=== PATIENT | female | born 1995 | race Caucasian/White ===

== ENCOUNTER 2017-03-08 02:52 | Inpatient (IN) | payer MEDICAID, OTHER ==
[~2017-03-08] VITALS: Ht 149.9 cm; Wt 50.7 kg
[2017-03-08] VITALS (18 sets, daily range): BP systolic 84–106; BP diastolic 44–70; PULSE 82–114; RESP 10–26; Ht 149.9 cm; Wt 50.7 kg
[2017-03-08] MEDS ORDERED: SOD CHLORIDE 0.9% 1,000 ML IV STA (03:34)
[2017-03-08] MEDS ORDERED: HYDROmorphONE 1 MG/ML SYG IV STA (03:34)
[2017-03-08] MEDS ORDERED: ONDANSETRON 4 MG INJ IV STA (03:34)
[2017-03-08] MEDS ORDERED: PIPER-TAZO 3.375 GM IV (PMX) 100 ML IVPB ONE (04:00)
[2017-03-08 04:18] LABS: BASOPHILS % 0.3 % (0.0-2.0); EOSINOPHILS % 0.2 % (0.0-7.0); HEMATOCRIT 36.6 % (37.0-47.0); HEMOGLOBIN 12.1 g/dl (12.0-16.0); LYMPHOCYTES # 2.2 10^3/ul (0.8-2.9); LYMPHOCYTES % 16.2 % (18.0-55.0); MEAN CORPUSCULAR HEMOGLOBIN 31.8 pg (29.0-33.0); MEAN CORPUSCULAR HGB CONC 33.1 g/dl (32.0-37.0); MEAN CORPUSCULAR VOLUME 96.1 fl (72.0-104.0); MEAN PLATELET VOLUME 9.8 fl (7.4-10.4); MONOCYTE # 0.7 10^3/ul (0.3-0.9); MONOCYTES % 5.2 % (0.0-13.0); NEUTROPHIL # 10.6 10^3/ul (1.6-7.5); NEUTROPHILS % 77.8 % (30.0-74.0); PLATELET COUNT 217 10^3/UL (140-415); RED BLOOD COUNT 3.81 10^6/ul (4.20-5.40); RED CELL DISTRIBUTION WIDTH 12.5 % (11.5-14.5); WHITE BLOOD COUNT 13.6 10^3/ul (4.8-10.8)
[2017-03-08] MEDS ORDERED: ONDANSETRON 4 MG INJ IV PRN ×2 (04:30→15:30)
[2017-03-08] MEDS ORDERED: NACL 0.9% 3 ML SYG IV SCH (04:30)
[2017-03-08] MEDS ORDERED: morphine 2 MG INJ IV PRN (04:30)
[2017-03-08 04:37] LABS: ALBUMIN 4.1 g/dl (3.3-4.9); ALBUMIN/GLOBULIN RATIO 1.46; BILIRUBIN,INDIRECT 1.2 mg/dl (0-1.1); BILIRUBIN,TOTAL 1.2 mg/dl (0.2-1.3); CALCIUM 8.7 mg/dl (8.4-10.2); CREATININE 0.6 mg/dl (0.44-1.00); POTASSIUM 3.8 mmol/L (3.5-5.1); TOTAL PROTEIN 6.9 g/dl (6.1-8.1)
[2017-03-08] MEDS ORDERED: SOD CHLORIDE 0.9% 1,000 ML IV SCH (05:00)
--- NOTE | 2017-03-08 05:03 | ERA ---
ER Documentation Chief Complaint Date/Time DATE: 03/08/17 TIME: 04:59 Chief Complaint RLQ abdominal pain. HPI 21-year-old young woman diagnosed at [facility] with acute retrocecal appendicitis dilated to 9 mm after presenting there with about 7 hours of abdominal pain and nausea. For some reason shortly after admission her and her mother decided to leave AGAINST MEDICAL ADVICE because they did not like that facility. She has continued right lower quadrant abdominal pain with nausea although denies fevers or chills, no vomiting or diarrhea. ROS All systems reviewed and are negative except as per history of present illness. Medications Home Meds No Active Prescriptions or Reported Meds Allergies Allergies: Coded Allergies: No Known Allergy (Unverified , 03/08/17) PMhx/Soc None Medical and Surgical Hx: pt denies Medical Hx, pt denies Surgical Hx Hx Alcohol Use: No Hx Substance Use: No Hx Tobacco Use: No Smoking Status: Never smoker FmHx Family History: No diabetes Physical Exam Vitals Vital Signs Date Time Temp Pulse Resp B/P Pulse Ox O2 Delivery O2 Flow Rate FiO2 03/08/17 02:55 98.4 87 18 109/62 99 Physical Exam GENERAL: Well-developed, afebrile, moderate pain HEENT: Moist mucous membranes, pink conjunctiva, no cervical spine tenderness or step-off deformities, no goiter, no jaundice or icterus, extraocular movements intact without pain. No submandibular induration, and no pharyngeal erythema NEURO: Alert and oriented 3, cranial nerves II through XII intact bilaterally, pupils equal round reactive to light, no focal deficits or facial asymmetry, sensation intact distally Strength 5/5 in upper and lower extremities bilaterally CARDIAC: Regular rate and rhythm, no murmurs rubs or gallops LUNGS: Clear bilaterally no wheezing crackles or stridor ABDOMEN: Positive McBurney's point tenderness with voluntary guarding, no rigidity or rebound. SKIN: Warm and dry to touch, no abrasions, contusions, or hematomas, no lacerations, no ecchymosis, no target lesions, and without ulcers EXTREMITIES: No clubbing cyanosis or edema, calves are bilaterally symmetrical, no Homans sign, no popliteal cord sign. Distal pulses equal and bilateral PSYCH: Normal affect without agitation or irritability Result Diagram: 03/08/17 0340 03/08/17 0340 Results 24 hrs Laboratory Tests Test 03/08/17 03:40 White Blood Count 13.610^3/ul Red Blood Count 3.8110^6/ul Hemoglobin 12.1g/dl Hematocrit 36.6% Mean Corpuscular Volume 96.1fl Mean Corpuscular Hemoglobin 31.8pg Mean Corpuscular Hemoglobin Concent 33.1g/dl Red Cell Distribution Width 12.5% Platelet Count 18522^3/UL Mean Platelet Volume 9.8fl Neutrophils % 77.8% Lymphocytes % 16.2% Monocytes % 5.2% Eosinophils % 0.2% Basophils % 0.3% Nucleated Red Blood Cells % 0.0/100WBC Neutrophils # 10.610^3/ul Lymphocytes # 2.210^3/ul Monocytes # 0.710^3/ul Eosinophils # 0.010^3/ul Basophils # 0.010^3/ul Nucleated Red Blood Cells # 0.010^3/ul Sodium Level 141mmol/L Potassium Level 3.8mmol/L Chloride Level 106mmol/L Carbon Dioxide Level 22mmol/L Anion Gap 17 Blood Urea Nitrogen 9mg/dl Creatinine 0.60mg/dl Glucose Level 84mg/dl Calcium Level 8.7mg/dl Total Bilirubin 1.2mg/dl Direct Bilirubin 0.00mg/dl Indirect Bilirubin 1.2mg/dl Aspartate Amino Transf (AST/SGOT) 24IU/L Alanine Aminotransferase (ALT/SGPT) 32IU/L Alkaline Phosphatase 34IU/L Total Protein 6.9g/dl Albumin 4.1g/dl Globulin 2.80g/dl Albumin/Globulin Ratio 1.46 Lipase 28U/L Current Medications Medications (Trade) Dose Ordered Sig/Romina Route PRN Reason Start Time Stop Time Status Last Admin Dose Admin Sodium Chloride (NS) 1,000 ml @ 1,000 mls/hr Q1H STAT IV 03/08/17 03:34 03/08/17 04:33 DC 03/08/17 03:55 Hydromorphone HCl (Dilaudid) 1 mg ONCE STAT IV 03/08/17 03:34 03/08/17 03:36 DC Ondansetron HCl 4 mg 4 mg ONCE STAT IV 03/08/17 03:34 03/08/17 03:37 DC 03/08/17 03:54 Piperacillin Sod/ Tazobactam Sod (Zosyn 3.375gm/ 100 ml (Pmx)) 100 ml @ 200 mls/hr ONCE ONCE IVPB 03/08/17 04:00 03/08/17 04:29 DC 03/08/17 03:54 Procedures/MDM IV line was established patient was placed on nurse monitoring rhythm strip revealed sinus rhythm at about 80 bpm with upright P and T waves. Patient was afebrile. I administered 1 L normal saline intravenously, hydromorphone 1 mg IV, Zofran 4 mg IV, Zosyn 3.375 g IV. I reviewed the patient's CT scan report which revealed acute appendicitis and will defer further imaging. CBC revealed leukocytosis of 14, electrolytes normal, liver function tests normal, test negative. I spoke to surgeon radio station operator regarding patient's presentation and symptomatology. Patient will be admitted to [facility]. Departure Diagnosis: Primary Impression: Appendicitis Qualified Code: K35.2 - Acute appendicitis with generalized peritonitis Condition: CRYSTAL Haynes MD Mar 08, 2017 05:03
[2017-03-08] MEDS ORDERED: PANTOPRAZOLE 40 MG INJ IV SCH (06:00)
--- NOTE | 2017-03-08 06:40 | HP ---
Date/Time of Note Date/Time of Note DATE: 03/08/17 TIME: 06:28 Assessment/Plan VTE Prophylaxis VTE Prophylaxis Intervention: SCD's Lines/Catheters IV Catheter Type (from [facility]): Peripheral IV Assessment/Plan Chief Complaint/Hosp Course This is a 21-year-old female being admitted to the [facility] floor for: #1 acute appendicitis: We will keep the patient n.p.o., IV fluid hydration with normal saline, Zosyn IV every 6 hours, surgery has been consulted by the ED. Pain medications as indicated, patient currently would like to avoid narcotic medications. #2 tobacco use: Smoking cessation education was given to the patient, greater than 5 minutes was spent on smoking cessation education per #3 DVT and GI prophylaxis: SCDs, Protonix Further treatment strategy will be implemented as per the clinical course. Problems: HPI/ROS Admit Date/Time Admit Date/Time Mar 08, 2017 at 04:17 Hx of Present Illness Chief complaint: Abdominal pain This is a 21-year-old young woman diagnosed at [facility] with acute retrocecal appendicitis dilated to 9 mm after presenting there with about 7 hours of abdominal pain and nausea. For some reason shortly after admission her and her mother decided to leave AGAINST MEDICAL ADVICE because they did not like that facility. She has continued right lower quadrant abdominal pain with nausea although denies fevers or chills, no vomiting or diarrhea. The current time she appears comfortable in bed. She states that Motrin and Tylenol help with her pain and she prefers not to take any narcotic medications that she does feel nauseated after taking them. Allergies: NKDA Medications: None ROS Const: As per HPI Eyes : No pain discharge or redness or change in visual acuity ENT: No pain, sore throat, congestion, congestion, dysphagia or discharge Respiratory: No shortness of breath, cough, sputum, wheezing, or pleuritic pain Cardiovascular: No chest pain, palpitation, PND, or edema GI : As per HPI Genitourinary: No dysuria, hematuria, flank pain , discharge or CVA tenderness Musculoskeletal: No joint pain, back pain, neck pain, restricted range of motion in neck or joints Skin: No rash, bruising or hives Neuro: No headache, dizziness, syncope, seizure, focal weakness Endocrine: No polyuria, polydipsia, temperature intolerance Psych: No hallucination, depression, anxiety or suicidal ideation PMH/Family/Social Past Medical History Medical History: no pertinent history Past Surgical History Past Surgical Hx: no surgical history Family History Significant Family History: no pertinent family hx Social History Smoking Status: Current every day smoker (Half pack per day 10 years) Exam/Review of Systems Vital Signs Vitals Vital Signs Date Time Temp Pulse Resp B/P Pulse Ox O2 Delivery O2 Flow Rate FiO2 03/08/17 05:07 97.7 85 20 101/70 99 Room Air Exam Exam General: Patient is a pleasant 21-year-old female lying in bed in no acute distress HEENT: Atraumatic, normocephalic. The pupils are equal, round and reactive. Extraocular motor are intact Neck: Supple with full range of motion. No rigidity or meningismus Chest: Nontender Lungs: Clear to auscultation bilaterally no crackles rales or wheezing Heart: Normal S1-S2, Regular rhythm and rate. No murmur, S3, or S4 Abdomen: Soft, right lower quadrant tenderness to palpation Extremities: Normal to inspection, no edema no cyanosis Neurologic: Normal mental status, speech normal, cranial nerves II through XII are intact, motor and sensory are intact, no focal weakness Additional Comments Pertinent laboratory findings from [facility]: CBC: White blood cell count 14.3 hemoglobin 13 hematocrit 39 platelets 262, BMP within normal values. CT of the abdomen and pelvis: Retrocecal appendix measuring up to 9 mm diameter with periappendiceal fat stranding and fluid accumulation suggesting acute appendicitis. Please see [facility] documentation for further clinical and laboratory and imaging information for the patient. Labs Result Diagram: 03/08/17 0340 03/08/17 0340 Medications Medications Current Medications Sodium Chloride (NS) 1,000 ml @ 75 mls/hr [id number] IV Last administered on 03/08 05:24; Admin Dose 75 MLS/HR; Start 03/08/17 at 05:00 Ondansetron HCl (Zofran Inj) 4 mg Q6H PRN IV NAUSEA AND/OR VOMITING; Start at 04:30 Morphine Sulfate (morphine) 2 mg Q4H PRN IV SEVERE PAIN LEVEL 7-10; Start 03/08 at 04:30 Pantoprazole 40 mg 40 mg DAILY@06 IV Last administered on 03/08/17 05:23; Admin Dose 40 MG; Start 03/08/17 at 06:00 Piperacillin Sod/ Tazobactam Sod (Zosyn 3.375gm/ 100 ml (Pmx)) 100 ml @ 200 mls /hr Q6 IVPB ; Start 03/08/17 at 08:00 MARIBEL MARK Mar 08, 2017 06:39
[2017-03-08] MEDS ORDERED: DEXAMETHASONE 4 MG/ML 1 ML INJ ONE (07:00)
[2017-03-08] MEDS: PIPER-TAZO 3.375 GM IV (PMX) 100 ML IVPB SCH ×2 (08:12→12:22)
[2017-03-08 10:41] LABS: INR 1.18; PROTIME 15.1 Sec (12.2-14.2); PT RATIO 1.2
[2017-03-08] MEDS ORDERED: KETOROLAC 30 MG INJ IV PRN (11:00)
[2017-03-08] MEDS ORDERED: HYDROCODONE/APAP (5/325) TAB PO PRN ×3 (11:00→15:30)
--- NOTE | 2017-03-08 11:48 | HPN ---
Date/Time of Note Date/Time of Note DATE: 03/08/17 TIME: 11:48 Interval H&P Admission Note Pt. seen H&P reviewed: No system changes Pt. seen H&P reviewed. No system changes (I attest that I have seen and examined the patient and reviewed the operation in detail, as well as its risks , benefits and alternatives of the operation). I attest that I have seen and examined the patient and reviewed in detail the operation, and its associated risks, benefits and alternative. I have answered all the patient's questions to the best of my ability and the patient wishes to proceed. Please refer to rest of electronic medical record for additional updates. LESLEY RUSS M.D. Mar 08, 2017 11:48
--- NOTE | 2017-03-08 12:37 | CONS ---
Date/Time of Note Date/Time of Note DATE: 03/08/17 TIME: 12:37 Assessment/Plan Assessment/Plan Additional Assessment/Plan [facility] INPATIENT CONSULTATION NOTE DATE OF SERVICE: 03/08/2017 PLACE OF SERVICE: [facility], fourth floor ASSESSMENT AND PLAN: A very-pleasant and otherwise healthy 21-year-old young lady presenting with signs and symptoms consistent with acute appendicitis. I recommended laparoscopic, possible open appendectomy and reviewed the operation in detail, including the risks, benefits, and alternatives and answered all of the patient's and family's questions to the best my ability. The patient and family appear to understand and agreed to proceed with surgery. With above assessment, I've recommended the followin. Keep n.p.o. 2. Treat symptoms 3. To the operating room for above Thank you very much for having me involved in the care of this very pleasant patient and wonderful family. If you have any questions, please feel free to contact me at [phone]. Nature of presenting problem: Moderate severity Please note that, given the limited number of diagnoses or management options, the limited amount and/or complexity of data needed to be reviewed, and moderate to high risk of complications and/or morbidity or mortality, this qualifies as low complexity type of decision-making. Disclaimer: Inadvertent spelling and grammatical errors are likely due to EHR/ dictation software use and do not reflect on the quality of delivered patient care. Also, please note that the electronic time recorded on this node does not necessarily reflect the actual time of the visit. Updated clinical summary: A very-pleasant and otherwise healthy 21-year-old young lady presenting with signs and symptoms consistent with acute appendicitis. Comorbidities: 1. Smoking since age of 11 CONSULTATION REQUESTED BY: Kevin Magallon MD HISTORY OF PRESENT ILLNESS: The patient is a very pleasant otherwise healthy 21 -year-old young lady with a long history of smoking as the only comorbidity presenting with 1 day history of right lower quadrant abdominal pain associated with nausea and vomiting which was non-bloody. No issues with diarrhea or constipation reported. No fevers or chills. No prior similar episodes in the past. Pain was 10 out of 10 at its worse and localized to the right lower quadrant without significant radiation. It was constant in character and sharp. No alleviating factors and exacerbated by laying on that side. No gynecologic or obstetric issues. test negative per report. Patient was initially seen at [facility], but because they were unhappy about the care per their own report they left AGAINST MEDICAL ADVICE and decided to come to [facility]. No other complaints during my visit. ALLERGIES: NO KNOWN DRUG ALLERGIES MEDICATIONS Documented in the electronic records and reviewed by me. Please see the electronic records for details, as well as details for inpatient medications which were also reviewed by me. SOCIAL HISTORY: The patient lives with family. + Tob (per report, patient smokes half a pack of cigarettes since age 11);-ETOH;-IVDU FAMILY HISTORY: There are no significant medical, surgical or oncologic issues in the family as reported by the patient or reflected in the chart. REVIEW OF SYSTEMS: Other than mentioned above, there were no other pertinent positives or pertinent negatives in an otherwise complete 14 point review of systems. PHYSICAL EXAMINATION GENERAL: The patient appears to be a very pleasant lady of non- descent lying in bed, appearing stated age, and otherwise in no acute distress. BMI: 22.6 VITAL SIGNS: AVSS (please also see auto important data if available as well as the electronic records) HEENT: Normocephalic and atraumatic. Extraocular muscles and hearing are grossly intact bilaterally and symmetrically. Sclerae are nonicteric. Oral cavity is clear; oral mucosa appear to be pink and moist. Dentition: fair. NECK: Supple. There is no lymphadenopathy or JVD. There is no submental, submandibular or supraclavicular lymphadenopathy. CHEST: Rises symmetrically with each breath; patient is breathing comfortably. There are no audible wheezes, rales or rhonchi on the gross exam. HEART: Pulse is regular and palpable on the right wrist. Capillary refill is normal. Carotid pulses are palpable bilaterally and symmetrically in the neck. EXTREMITIES: Lower extremities contain no pitting edema around the ankles bilaterally and symmetrically. ABDOMEN: Abdomen is soft, mild to moderately tender in the right lower quadrant and nondistended. No evidence of ascites, organomegaly, caput medusae , engorged subcutaneous veins, or other abnormalities. There are no peritoneal signs or guarding. SKIN: Appears to be pink and feels warm to touch. NEUROLOGIC: Awake, alert, and follows commands appropriately. LABORATORY DATA: From outside hospital: WBC 14.3, hemoglobin 13, platelets 262. Electrolytes normal. IMAGING: See electronic chart. Please note that I did not have access to the patient's outside CT and only had access to the report. Abdominal and pelvic CT [facility] 03/07/2017: 9 mm in diameter retrocecal appendix with periappendiceal fat stranding and fluid accumulation suggesting acute appendicitis. Consultation Date/Type/Reason Admit Date/Time Mar 08, 2017 at 04:17 Past Medical History Medical History: no pertinent history Past Surgical History Past Surgical Hx: no surgical history Social History Smoking Status: Current every day smoker (Half pack per day 10 years) Exam/Review of Systems Vital Signs Vitals Vital Signs Date Time Temp Pulse Resp B/P Pulse Ox O2 Delivery O2 Flow Rate FiO2 03/08/17 05:07 97.7 85 20 101/70 99 Room Air Intake and Output 03/07/17 03/07/17 03/08/17 15:00 23:00 07:00 Intake Total 100 ml Balance 100 ml Results Result Diagram: 03/08/17 0340 03/08/17 0340 Results 24 hrs Laboratory Tests Test 03/08/17 03:40 03/08/17 10:05 White Blood Count 13.6 H Red Blood Count 3.81 L Hemoglobin 12.1 Hematocrit 36.6 L Mean Corpuscular Volume 96.1 Mean Corpuscular Hemoglobin 31.8 Mean Corpuscular Hemoglobin Concent 33.1 Red Cell Distribution Width 12.5 Platelet Count 217 Mean Platelet Volume 9.8 Neutrophils % 77.8 H Lymphocytes % 16.2 L Monocytes % 5.2 Eosinophils % 0.2 Basophils % 0.3 Nucleated Red Blood Cells % 0.0 Neutrophils # 10.6 H Lymphocytes # 2.2 Monocytes # 0.7 Eosinophils # 0.0 Basophils # 0.0 Nucleated Red Blood Cells # 0.0 Sodium Level 141 Potassium Level 3.8 Chloride Level 106 Carbon Dioxide Level 22 Anion Gap 17 H Blood Urea Nitrogen 9 Creatinine 0.60 Glucose Level 84 Calcium Level 8.7 Total Bilirubin 1.2 Direct Bilirubin 0.00 Indirect Bilirubin 1.2 H Aspartate Amino Transf (AST/SGOT) 24 Alanine Aminotransferase (ALT/SGPT) 32 Alkaline Phosphatase 34 L Total Protein 6.9 Albumin 4.1 Globulin 2.80 Albumin/Globulin Ratio 1.46 Lipase 28 Beta HCG, Quantitative < 2.4 Prothrombin Time 15.1 H Prothrombin Time Ratio 1.2 INR International Normalized Ratio 1.18 Medications Medications Current Medications Sodium Chloride (NS) 1,000 ml @ 75 mls/hr [id number] IV Last administered on 03/08 05:24; Admin Dose 75 MLS/HR; Start 03/08/17 at 05:00 Ondansetron HCl (Zofran Inj) 4 mg Q6H PRN IV NAUSEA AND/OR VOMITING; Start at 04:30 Morphine Sulfate (morphine) 2 mg Q4H PRN IV SEVERE PAIN LEVEL 7-10; Start 03/08 at 04:30 Pantoprazole 40 mg 40 mg DAILY@06 IV Last administered on 03/08/17 05:23; Admin Dose 40 MG; Start 03/08/17 at 06:00 Piperacillin Sod/ Tazobactam Sod (Zosyn 3.375gm/ 100 ml (Pmx)) 100 ml @ 200 mls /hr Q6 IVPB Last administered on 03/08/17 12:22; Admin Dose 200 MLS/HR; Start 03/08/17 at 08:00 Acetaminophen/ Hydrocodone Bitart (Kermit (5/325)) 1 tab Q4H PRN PO Pain; Start 03/08/17 at 11:00 Ketorolac Tromethamine (Toradol) 30 mg Q6H PRN IV PAIN; Start 03/08/17 at 11:00 ; Stop 03/11/17 at 10:59 LESLEY RUSS M.D. Mar 08, 2017 12:37
[2017-03-08] MEDS ORDERED: GLYCOPYRROLATE 0.4 MG INJ ONE (13:37)
[2017-03-08] MEDS ORDERED: LIDOCAINE 2% (SDV) 5 ML INJ ONE (13:37)
[2017-03-08] MEDS ORDERED: PROPOFOL 20 ML ONE (13:37)
[2017-03-08] MEDS ORDERED: NEOSTIGMINE 3 MG/3 ML SYRINGE ONE (13:37)
[2017-03-08] MEDS ORDERED: ROCURONIUM 50 MG INJ ONE (13:37)
[2017-03-08] MEDS ORDERED: ONDANSETRON 4 MG INJ ONE (13:38)
[2017-03-08] MEDS ORDERED: FENTAnyl 50 MCG/ML VIAL ONE (13:38)
[2017-03-08] MEDS ORDERED: SUGAMMADEX SODIUM 200 MG/2 ML VIAL IV ONE ×2 (13:38→13:52)
[2017-03-08] MEDS ORDERED: MIDAZOLAM 1 MG/ML 2 ML INJ ONE (13:38)
[2017-03-08] MEDS ORDERED: BUPIVACAINE 0.25%/EPI (SDV) 30 ML INJ ONE (13:39)
[2017-03-08 13:40] LABS: ADD UMIC YES; UR ASCORBIC ACID NEGATIVE (NEGATIVE); UR BILIRUBIN (Dip) NEGATIVE (NEGATIVE); UR BLOOD (Dip) 1+ mg/dL (NEGATIVE); UR CLARITY SLIGHTLY CLOUDY (CLEAR); UR COLOR YELLOW (YELLOW); UR GLUCOSE (Dip) NEGATIVE (NEGATIVE); UR KETONES (Dip) NEGATIVE (NEGATIVE); UR LEUKOCYTE ESTERASE (Dip) NEGATIVE Leu/ul (NEGATIVE); UR NITRITE (Dip) NEGATIVE (NEGATIVE); UR RBC 0 /HPF (0-5); UR SPECIFIC GRAVITY (Dip) 1.017 (1.003-1.030); UR SQUAMOUS EPITHELIAL CELL MODERATE /HPF (FEW); UR TOTAL PROTEIN (Dip) NEGATIVE (NEGATIVE); UR UROBILINOGEN (Dip) NEGATIVE (NEGATIVE)
[2017-03-08] MEDS ORDERED: BUPIVACAINE 0.25%/EPI (SDV) 30 ML INJ INJ ONE (14:39)
[2017-03-08] MEDS ORDERED: D5W-0.45 NACL + KCL 20 MEQ 1,000 ML IV SCH (15:25)
[2017-03-08] MEDS ORDERED: DOCUSATE SODIUM 100 MG CAP PO PRN (15:30)
[2017-03-08] MEDS ORDERED: FENTAnyl 50 MCG/ML VIAL IV PRN (15:30)
[2017-03-08] MEDS ORDERED: HYDROmorphONE 1 MG/ML SYG IV PRN ×2 (15:30)
[2017-03-08] MEDS ORDERED: OXYCODONE/ACETAMINOPHEN (5/325) TAB PO PRN (15:30)
[2017-03-08] MEDS ORDERED: NA PHOSPHATE/BIPHOS 133 ML ENEMA PR PRN (15:30)
[2017-03-08] MEDS ORDERED: MEPERIDINE 25 MG INJ IV PRN (15:30)
[2017-03-08] MEDS ORDERED: BISACODYL 10 MG SUPP PR PRN (15:30)
[2017-03-08] MEDS ORDERED: HYDROmorphONE (0.2 MG/ML) 10ML SYG IV PRN ×2 (15:30)
[2017-03-08] MEDS ORDERED: MEPERIDINE 25 MG INJ ONE (15:32)
--- NOTE | 2017-03-08 15:35 | OPR ---
Date/Time of Note Date/Time of Note DATE: 03/08/17 TIME: 15:34 Operative Report Operative\Procedure Findings [facility] INPATIENT OPERATIVE NOTE PLACE OF SERVICE: [facility] DATE OF SURGERY: 03/08/2017 PREOPERATIVE DIAGNOSIS: 1. Acute appendicitis, retrocecal 2. Smoking POSTOPERATIVE DIAGNOSIS: 1. Acute appendicitis, retrocecal, early 2. Smoking OPERATION: 1. Laparoscopic appendectomy SURGEON: Lesley Russ M.D. GAMBLING BOX PERSON: None ANESTHESIA: General endotracheal tube anesthesia ANESTHESIOLOGIST: Chapin Cantu M.D. BRIEF SUMMARY: An otherwise uncomplicated laparoscopic appendectomy was performed with findings of non-perforated early retrocecal appendicitis. Updated clinical summary: A very-pleasant and otherwise healthy 21-year-old young lady presenting with signs and symptoms consistent with acute appendicitis. Comorbidities: 1. Smoking since age of 11 BRIEF HISTORY: The patient is a very-pleasant and otherwise healthy 21-year-old young lady presenting with signs and symptoms consistent with acute appendicitis. I met with the patient and family that included her mother, father , and brother and counseled them regarding the possible options of treatment, and I strongly suggested a laparoscopic, possible open appendectomy. We reviewed the operation in detail as well as the risks, benefits, alternatives, and expected outcomes of this operation. After careful consideration of all the risks, benefits, and alternatives, the patient and family appeared to understand those risks and wished to proceed with surgery. For a detailed report of my consultation with patient and family, please refer to my separate consultation note. STATEMENT OF THE INFORMED CONSENT: The patient and family appeared to understand the risks of the operation to include, but not be limited to risk of postoperative pain and scar tissue, possible infection or bleeding requiring other interventions such as opening the wound, placement of drainage catheters, or other operative interventions; possible injury to surrounding to structures including bowel, bladder, bile duct, or blood vessels, or solid organs such as liver, kidney, or pancreas requiring other interventions or procedures; possible leakage of bowel from anastomotic sites or suture lines causing significant increase in morbidity and mortality and requiring multiple interventions including but not limited to, placement of drainage catheters, imaging studies, as well as operative interventions; possible other source of sepsis such as urinary tract infections or pneumonias, or other sources of potentially life threatening problems such as deep venous thrombus formation causing pulmonary embolism, myocardial arrhythmias and infarctions, and even . After careful consideration of all their options, the patient and family appeared to understand and wished to proceed with surgery. DESCRIPTION OF PROCEDURE: After obtaining informed consent, the patient was brought into the operating room and was placed in a normal supine position, where successful general endotracheal tube anesthesia was performed. Intravenous access was already in place and intravenous antimicrobials had been appropriately chosen and dosed prior to the operation. The patient's abdominal skin was prepped and draped from the nipple line down to the level of the upper thighs in the usual sterile fashion. We then called a surgical time-out where the patient's identification, date of , nature of the operation, allergies , presence of intravenous antimicrobials, presence of needed equipment, and any other concerns were reviewed and agreed upon by all members of the operating room team. We then started the operation by placing a 5 mm skin incision in the left lower quadrant and then introduced a 5 mm [employer] trocar into the peritoneal space, visualizing all the layers of the abdominal wall as we entered. Note that there was no indication of any injury to underlying structures with our entry into the peritoneal space. We insufflated the abdominal cavity to a maximum pressure of 15 mmHg and again inspected the area of insertion and ensured no obvious injury to underlying structures prior to inspecting the abdominal cavity and showing no obvious pus, bowel contents, or other abnormal features. We could not see the appendix very well. We, therefore, injected the future sites of our other trocars with 0.25% Marcaine with epinephrine and placed a 5 mm [employer] trocar into the midline suprapubic area, taking care not to injure the bladder. Note that the patient had not urinated prior to the operation, and bladder was somewhat full. We also placed a 12 mm trocar in the umbilical midline area, all under direct visualization. With our instruments in place, we had excellent visualization and access to the right lower quadrant. We then identified the appendix, which was retrocecal and appeared to be mildly inflamed but had a normal base coming out of the cecum. I then went ahead and used judicious amount of cautery as well as mostly blunt dissection to circumferentially isolate the base of the appendix and then transected this using one firing of the white load of the Endo-HALIE stapler. We also repeated the firing on the mesentery of the appendix and completely disconnected the organ from the colon, delivered this out through the 12 mm trocar site inside of an EndoCatch bag without having to enlarge the fascial defect as well as without contaminating the wound. The specimen was sent to Pathology for further analysis. We then ensured adequate hemostasis and bile stasis, removed all our equipment including the pneumoperitoneum from the abdominal cavity prior to closing the infraumbilical fascia with 1 [id number] 0 Vicryl suture on a UR -6 needle, washing the wounds with copious amounts of normal saline, injecting the initial insertion point of the trocar with 0.25% Marcaine with epinephrine, and then closing the skin using interrupted 4-0 Monocryl sutures. Light dressing was then applied. At the end of the operation, both the sponge count and needle count were reportedly correct x2. The patient tolerated the procedure without any reported complications. ESTIMATED BLOOD LOSS: Less than 10 mL. BLOOD OR BLOOD PRODUCT TRANSFUSIONS: None to my knowledge. SPECIMENS: 1. Appendix COMPLICATIONS: None. DISPOSITION: Recovery area. Disclaimer: Inadvertent spelling and grammatical errors are likely due to EHR/ dictation software use and do not reflect on the quality of delivered patient care. LESLEY RUSS M.D. Mar 08, 2017 15:35
[2017-03-08] MEDS ORDERED: ACETAMINOPHEN 1000MG/100ML IV 100 ML ONE (15:38)
[2017-03-08] MEDS ORDERED: ACETAMINOPHEN 1000MG/100ML IV 100 ML IVPB ONE (16:00)
--- NOTE | 2017-03-08 18:24 | PDOCDIS ---
Discharge Instructions DIAGNOSIS Discharge Diagnosis Acute appendicitis. Status post laparoscopic appendectomy. CONDITION Patient Condition: Stable FOLLOW UP/APPOINTMENTS Follow-up Plan Dain Lara MD Specialty General Surgery Office Address [address] [place] [address] [place] [id number] Office OTHER ORDERS: Other Orders: 1. Regular diet as tolerated. 2. Keep incisions clean and dry. May shower. Avoid tub baths and swimming for 2 weeks. Use mild soap and pat dry the incisions. 3. Take medications as needed for pain. 4. Call the surgeon or go to the nearest ER if you have severe abdominal pain despite pain medications. 5. Call the surgeon or go to the nearest ER if you notice any bleeding or secretions coming out of the incision sites. Also call the surgeon if you notice any blood in stool, if you have persistent fevers, or any other unusual signs or symptoms. 6. Follow-up with the surgeon Dr. Lara in 7 days for incision check. 7. Avoid heavy lifting [more than 25 pounds] for 8 weeks. SCHOOL/WORK RELEASE May return to School/Work on: Mar 12, 2017 May return to School/Work with: With Restrictions (No heavy weight lifting greater than 25 pounds for 8 weeks.) TIFFANIE MEDLEY NP Mar 08, 2017 18:24
[2017-03-08] MEDS ORDERED: ACET-2047 PO (18:25)
[2017-03-08] MEDS ORDERED: IBUP-1542 PO (18:25)
--- NOTE | 2017-03-08 18:49 | DS ---
Date/Time of Note Date/Time of Note DATE: 03/08/17 TIME: 18:49 Discharge Summary Admission/Discharge Info Admit Date/Time Mar 08, 2017 at 04:17 Discharge Date/Time Discharge Diagnosis 1. Acute appendicitis. Status post laparoscopic appendectomy. 2. Nicotine use. Patient Condition: Stable Consults Dain Lara MD, General Surgery. Procedures Laparoscopic appendectomy. Hx of Present Illness Chief complaint: Abdominal pain This is a 21-year-old young woman diagnosed at [facility] with acute retrocecal appendicitis dilated to 9 mm after presenting there with about 7 hours of abdominal pain and nausea. For some reason shortly after admission her and her mother decided to leave AGAINST MEDICAL ADVICE because they did not like that facility. She has continued right lower quadrant abdominal pain with nausea although denies fevers or chills, no vomiting or diarrhea. The current time she appears comfortable in bed. She states that Motrin and Tylenol help with her pain and she prefers not to take any narcotic medications that she does feel nauseated after taking them. Allergies: NKDA Medications: None Hospital Course The patient was admitted to inpatient medical surgical floor. The patient was kept n.p.o. She was started on appropriate antibiotics. The patient was provided with adequate pain control. General surgery consult was called. The patient was taken to the operating room on 03/08/2017 and the patient underwent a laparoscopic appendectomy without any complications. Postoperatively, the patient was started on a clear liquid diet and the patient's diet was advanced as tolerated to a regular consistency diet without any significant gastrointestinal symptoms. The patient was cleared by general surgery to be discharged home. The patient refused taking any opioids for pain control. The patient is a current nicotine user. The patient was advised on the importance of quitting the use of nicotine. The patient had a stable hospital course. Discharge Instructions 1. Regular diet as tolerated. 2. Keep incisions clean and dry. May shower. Avoid tub baths and swimming for 2 weeks. Use mild soap and pat dry the incisions. 3. Take medications as needed for pain. 4. Call the surgeon or go to the nearest ER if you have severe abdominal pain despite pain medications. 5. Call the surgeon or go to the nearest ER if you notice any bleeding or secretions coming out of the incision sites. Also call the surgeon if you notice any blood in stool, if you have persistent fevers, or any other unusual signs or symptoms. 6. Follow-up with the surgeon Dr. Lara in 7 days for incision check. 7. Avoid heavy lifting [more than 25 pounds] for 8 weeks. The patient/family verbalized understanding of the discharge instructions. At this time I would like to thank Dr. Lara for seeing the patient, doing the necessary procedures, and providing clinical recommendations. Case discussed with Dr. Brady. Home Meds Active Scripts Acetaminophen* (Acetaminophen*) 650 Mg Tablet, 650 MG PO Q6H Y for PAIN AND OR ELEVATED TEMP, #30 TAB Prov:TIFFANIE MEDLEY [employer] SUPERINTENDENT 03/08/17 Ibuprofen* (Motrin*) 600 Mg Tab, 600 MG PO Q6H Y for PAIN, #30 TAB Prov:TIFFANIE MEDLEY [employer] SUPERINTENDENT 03/08/17 Follow-up Plan Follow-up with Dr. Lara in 1 week for incision check. Primary Care Provider Care Physician No Primary Time spent on discharge: > 30 minutes Pending Labs Laboratory Tests Test 03/08/17 03:40 03/08/17 10:05 03/08/17 12:00 White Blood Count 13.610^3/ul (4.8-10.8) Red Blood Count 3.8110^6/ul (4.20-5.40) Hemoglobin 12.1g/dl (12.0-16.0) Hematocrit 36.6% (37.0-47.0) Mean Corpuscular Volume 96.1fl (72.0-104.0) Mean Corpuscular Hemoglobin 31.8pg (29.0-33.0) Mean Corpuscular Hemoglobin Concent 33.1g/dl (32.0-37.0) Red Cell Distribution Width 12.5% (11.5-14.5) Platelet Count 34415^3/UL (140-415) Mean Platelet Volume 9.8fl (7.4-10.4) Neutrophils % 77.8% (30.0-74.0) Lymphocytes % 16.2% (18.0-55.0) Monocytes % 5.2% (0.0-13.0) Eosinophils % 0.2% (0.0-7.0) Basophils % 0.3% (0.0-2.0) Nucleated Red Blood Cells % 0.0/100WBC (0.0-0.0) Neutrophils # 10.610^3/ul (1.6-7.5) Lymphocytes # 2.210^3/ul (0.8-2.9) Monocytes # 0.710^3/ul (0.3-0.9) Eosinophils # 0.010^3/ul (0.0-0.5) Basophils # 0.010^3/ul (0.0-0.1) Nucleated Red Blood Cells # 0.010^3/ul (0.0-0.0) Sodium Level 141mmol/L (135-144) Potassium Level 3.8mmol/L (3.5-5.1) Chloride Level 106mmol/L (97-110) Carbon Dioxide Level 22mmol/L (21-31) Anion Gap 17 (8-16) Blood Urea Nitrogen 9mg/dl (7-20) Creatinine 0.60mg/dl (0.44-1.00) Glucose Level 84mg/dl (70-220) Calcium Level 8.7mg/dl (8.4-10.2) Total Bilirubin 1.2mg/dl (0.2-1.3) Direct Bilirubin 0.00mg/dl (0.00-0.20) Indirect Bilirubin 1.2mg/dl (0-1.1) Aspartate Amino Transf (AST/SGOT) 24IU/L (15-46) Alanine Aminotransferase (ALT/SGPT) 32IU/L (13-69) Alkaline Phosphatase 34IU/L (42-121) Total Protein 6.9g/dl (6.1-8.1) Albumin 4.1g/dl (3.3-4.9) Globulin 2.80g/dl (1.3-3.2) Albumin/Globulin Ratio 1.46 Lipase 28U/L (23-300) Beta HCG, Quantitative < 2.4mIU/ml Prothrombin Time 15.1Sec (12.2-14.2) Prothrombin Time Ratio 1.2 INR International Normalized Ratio 1.18 Urine Color YELLOW (YELLOW) Urine Clarity SLIGHTLY CLOUDY (CLEAR) Urine pH 6.0 (5.0-9.0) Urine Specific [place] 1.017 (1.003-1.030) Urine Ketones NEGATIVEmg/dL (NEGATIVE) Urine Nitrite NEGATIVEmg/dL (NEGATIVE) Urine Bilirubin NEGATIVEmg/dL (NEGATIVE) Urine Urobilinogen NEGATIVEmg/dL (NEGATIVE) Urine Leukocyte Esterase NEGATIVELeu/ul (NEGATIVE) Urine Microscopic RBC 0/HPF (0-5) Urine Microscopic WBC 6/HPF (0-5) Urine Squamous Epithelial Cells MODERATE/HPF (FEW) Urine Hemoglobin 1+mg/dL (NEGATIVE) Urine Glucose NEGATIVEmg/dL (NEGATIVE) Urine Total Protein NEGATIVEmg/dl (NEGATIVE) TIFFANIE MEDLEY NP Mar 08, 2017 18:49
[2017-03-08] MEDS ORDERED: FAMOTIDINE 20 MG TAB PO SCH (21:00)
[2017-03-08] MEDS ORDERED: IBUPROFEN 600 MG TAB PO ONE (21:00)
[2017-03-09] MEDS ORDERED: ENOXAPARIN 40 MG/0.4 ML SYG SC SCH (09:00)
== END 2017-03-08 21:40 | disposition home or self-care (01) | DRG 343 ==
LOC: E/R 02:52 → MS1 04:17
PROVIDERS: ADMIT Family Medicine; ATTEND Family Medicine
PROC: 0DTJ4ZZ Resection of Appendix, Percutaneous Endoscopic Approach (ICD-10-PCS; principal; 2017-03-08 10:30)
DX: K35.89 Other acute appendicitis (principal); Z72.0 Tobacco use
CPT/HCPCS: 36415; 80053; 81001; 83690; 84702; 85025; 85610; 88304; 96374; 96375; C9113; J0131; J1100; J1170; J1885; J2175; J2250; J2405; J2543; J2710; J3010; J3480; J7030

== ENCOUNTER 2017-03-28 14:20 | Outpatient (CLI) | payer MEDICAID ==
[~2017-03-28] VITALS: Ht 151.1 cm; Wt 48.2 kg
[~2017-03-28 14:20] MED LIST: ACET-2047 PO; IBUP-1542 PO
[2017-03-28 14:32] VITALS: BP 106/51; PULSE 67; RESP 16; Ht 151.1 cm; Wt 48.2 kg
--- NOTE | 2017-03-28 17:24 | PN ---
Date/Time of Note Date/Time of Note DATE: 03/28/17 TIME: 17:24 Assessment/Plan Assessment/Plan Assessment/Plan [facility] Outpatient Progress Note Date of Service: 03/28/2017 Today's Assessment & Plan: Overall stable and doing well. No indication of major postoperative complications or surgical site infections after undergoing laparoscopic appendectomy for acute appendicitis. No indication for acute surgical intervention. With above assessment, I've recommended the following for today: 1. Follow-up with PCP 2. Follow-up with us as needed Thank you again for your great care of this very pleasant young lady and her wonderful family. If there are any questions, please feel free to call me at . TOTAL VISIT TIME: 20 minutes of which more than half was spent in [id number] discussion with the patient as well as coordination of care between multiple physicians and providers. Disclaimer: Inadvertent spelling and grammatical errors are likely due to EHR/ dictation software use and do not reflect on the quality of delivered patient care. Also, please note that the electronic time recorded on this node does not necessarily reflect the actual time of the visit. Updated Clinical Summary: Very pleasant and otherwise healthy 21-year-old young lady status post laparoscopic appendectomy at [facility] on 03/08/2017 for acute appendicitis. Comorbidities: 1. Smoking Subjective: No major events or complaints; no abd pain and under control with medications; no n/v/d; no sob or cp; + flatus; + BM and normal; + activity Objective: Vitals: See below Exam: GENERAL: On exam, the patient was sitting up in a chair and appeared to be comfortable and in no acute distress. ABDOMEN: Soft, nontender and nondistended. Incisions are clean, dry and intact without any evidence of erythema, edema, discharge, or hernia. There are no peritoneal signs or guarding. SKIN: Skin appears to be pink and feels warm to touch. NEUROLOGIC: Patient is awake, alert, and follows commands appropriately. Exam/Review of Systems Vital Signs Vitals Vital Signs Date Time Temp Pulse Resp B/P Pulse Ox O2 Delivery O2 Flow Rate FiO2 03/28/17 14:32 98.4 67 16 106/51 100 Room Air LESLEY RUSS M.D. Mar 28, 2017 17:24
== END 2017-03-28 15:04 | disposition home or self-care (01) ==
LOC: HPC 14:20
PROVIDERS: ATTEND Transplant Surgery
DX: K35.80 Unspecified acute appendicitis (principal); Z72.0 Tobacco use
CPT/HCPCS: G0463

== ENCOUNTER 2017-09-24 14:53 | Emergency (ER) | END 2017-09-24 19:50 | disposition home or self-care (01) ==